=== PATIENT | male | born 1970 | race Caucasian/White ===

== ENCOUNTER 2019-11-10 11:34 | Emergency (ER) | payer OTHER, SELFPAY ==
[2019-11-10 11:37] VITALS: BP 118/86; PULSE 91; RESP 18; TEMP 36.9; O2SAT 99; BMI 32.8
--- NOTE | 2019-11-10 11:39 | NURSING ---
NO OLD EKGS
--- NOTE | 2019-11-10 11:57 | EKG12_ITS ---
Test Reason : CHEST IGHTNESS Blood Pressure : / mmHG Vent. Rate : 095 BPM Atrial Rate : 095 BPM P-R Int : 156 ms QRS Dur : 074 ms QT Int : 350 ms P-R-T Axes : 017 021 019 degrees QTc Int : 439 ms Normal sinus rhythm Low voltage QRS Borderline ECG Confirmed by AUBREY ZAVALA ([id number]), news video editor CHARLOTTE OLSON ([id number]) on 11/15/2019 2:15:21 PM Referred By: MARSHALL Confirmed By:AUBREY ZAVALA
--- NOTE | 2019-11-10 11:57 | RAD_ITS ---
STUDY: X-RAY CHEST REASON FOR EXAM: Male, 49 years old. CHEST PAIN TECHNIQUE: Single AP portable view of the chest. COMPARISON: None. FINDINGS: EKG electrodes are seen. Elevation of the right hemidiaphragm. There is no demonstrated pleural abnormality. Normal size heart. Normal mediastinum and kylie. Normal visualized pulmonary arteries. Normal visualized aortic arch and descending thoracic aorta. Normal visualized thoracic spine. Normal visualized ribs, clavicles, and shoulders. There is no demonstrated abnormality of the visualized soft tissue structures of the upper abdomen. RAD/Chest 1 View (Portable) IMPRESSION: No acute abnormality is seen. Electronically Signed: Asif Penn, at 12:44 EDT , Service support ,
[2019-11-10 12:07] LABS: Absolute Lymphocyte Count 3.04 X10^3/uL (0.83-4.51); Absolute Neutrophil Count 4.6 X10^3/uL (2.0-7.7); Basophil# 0.02 X10^3/uL; Basophil% 0.2 % (0-1); Eosinophil# 0.08 X10^3/uL; Eosinophils% 0.9 % (0-5); Hematocrit 42.6 % (40-54); Hemoglobin 13.8 g/dL (13.0-16.5); Lymphocyte # 3.04 X10^3/ul (4.0); Lymphocyte % 34.9 % (19-41); Mean Corp Hgb Conc 32.4 g/dL (32-36); Mean Corpuscular Hgb 29.1 pg (27.0-32.0); Mean Corpuscular Volume 89.9 fL (80-94); Mean Platelet Vol. 11.3 fl (6.2-12.0); Monocyte# 0.92 X10^3/uL; Monocyte% 10.6 % (0-10); NRBC Flagged by Analyzer 0 % (0-5); Neutrophil # 4.64 X10^3/uL (2.7-7.7); Neutrophil % 53.3 % (47-70); Platelet Count 282 K/mm3 (150-450); RBC Distribution Width CV 12.8 % (11.6-14.6); Red Blood Count 4.74 M/mm3 (4.6-6.2); White Blood Count 8.7 K/mm3 (4.4-11.0)
[2019-11-10 12:22] LABS: Anion Gap 4 (5-15); BUN 12 mg/dL (7-18); BUN/Creat Ratio 10.6 RATIO (10-20); Calcium,Total 8.9 mg/dL (8.5-10.1); Chloride 108 mmol/L (98-107); Creatinine, Serum 1.13 mg/dL (0.70-1.30); EST Glomerular Filtration Rate 73 mL/min (>60); Est Glom Filt Rate - Afr Amer 89 mL/min (>60); Glucose 109 mg/dL (74-106); Potassium 3.6 mmol/L (3.5-5.1); Sodium Level 139 mmol/L (136-145)
--- NOTE | 2019-11-10 12:28 | ED.VISSUMM ---
- ER Visit Summary Date of Service: 11/10/19 Chief Complaint: Chest pain History of Present Illness: The patient is a 49 M who presents with chest pain that is been intermittent over the past 2 days. Patient states he went to his primary care physician today. Patient states he was referred here for further evaluation of his chest pain. Patient describes as a tightness. Patient states the pain is over the substernal area. Patient states nothing makes it better or worse. Patient admits to nausea but denies any vomiting. Patient admits to shortness of breath. Patient admits to cough but denies any sputum production. Patient admits to some palpitations. Physical Examination: Vital signs are stable. Patient is afebrile. Patient is in no acute distress. Oral mucosa is pink and moist. Neck is supple. Trachea is midline. There is no JVD. Heart was regular rate and rhythm. Lungs are clear and equal bilaterally. Abdomen is soft. Bowel sounds are normal. There is no tenderness. Cranial nerves II through XII are intact. There are no focal motor or sensory deficits noted. Extremities are intact. There is no calf tenderness or edema. Test Results: EKG shows normal sinus rhythm with a rate of 95. There are no acute ST or T wave changes. CBC, basic metabolic profile, troponin were obtained and were within normal limits. Portable chest x-ray was obtained. There is no acute cardiopulmonary process. This was interpreted by the radiologist and reviewed by myself. Emergency Department Course and Treatment: Patient was given baby aspirin here. Patient had no further episodes of chest pain here in the emergency department. Patient is feeling better on reevaluation. Patient was instructed to follow-up with his primary care physician in 5 to 7 days. Patient understood and was agreeable with the plan. All questions were answered. Disposition: Discharge home Impression: Chest pain This note was generated with [employer] dictation software. It may contain incorrect words, spelling, and punctuation that were not noted in review of the chart prior to signing ED Disposition - Plan for ED Patient: Disposition: Home or Assisted Living Diagnosis: Chest pain Instructions: ED Chest Pain Atypical Unkn Cause Referrals: NOT,DEFINED [NON-STAFF] - 5-7 Days
[2019-11-10 12:53] VITALS: O2SAT 98
[2019-11-10 12:57] VITALS: BP 124/92; PULSE 78; RESP 14; O2SAT 98
[2019-11-10] MEDS: Aspirin 81 MG TAB.CHEW 324 MG PO (12:58)
[2019-11-10 14:47] VITALS: BP 129/91; PULSE 78; RESP 12; O2SAT 98
[2019-11-10 16:08] VITALS: BP 107/78; PULSE 82; RESP 24; O2SAT 97
== END 2019-11-10 16:20 | disposition home or self-care (01) ==
PROVIDERS: Emergency Provider Emergency Medicine; PCP Nurse Practitioner Family
DX: R07.89 Other chest pain (principal); R06.02 Shortness of breath; R05 Cough; R00.2 Palpitations; R11.0 Nausea; J45.909 Unspecified asthma, uncomplicated
CPT/HCPCS: 71045; 80048; 84484; 85025; 93005; 99285; A4216

== ENCOUNTER 2021-06-26 09:50 | Emergency (ER) | payer SELFPAY ==
[2021-06-26 09:52] VITALS: BP 130/88; PULSE 99; RESP 16; TEMP 36.1; O2SAT 100; BMI 34.9
--- NOTE | 2021-06-26 10:15 | EDS_ITS ---
HPI History of Present Illness HPI Narrative: Patient presents with left ankle injury that occurred 4 days ago. Patient states he slipped on the ice while he was trying to get into his car. Patient states he went to [place] emergency department and had x-rays done there. Patient states he was given a splint. Patient states that his pain has gotten worse. Patient states his pain is worse with weightbearing. Patient states nothing seems to help with the pain. Patient denies any paresthesias or weakness. Patient denies any other injuries. Chief Complaint: Lower Extremity Injury Informant: patient Occured/Mechanism Mechanism/Context: Yes fall and Yes same level fall Onset/Context/Timing Onset: Days (4) Context: Sudden Onset Timing: Continuous Quality of Pain: Aching Location: Left ankle Worsened by: Weightbearing Relieved by: Nothing Associated Symptoms Associated Symptoms: Negative for Parasthesia, Weakness and Loss of Funtion [facility] Medical History (Updated 06/26/21 @ 12:[address] Jose Miguel Lira DO) Asthma Home Medications NK 11/10/19 [History Last Taken Unknown] Allergy/AdvReac Type Severity Reaction Status Date / Time tetanus and diphtheria Allergy Anaphylaxis Verified 06/26/21 09:51 toxoids Surgical History (Updated 06/26/21 @ 10:[address] Jose Miguel Lira DO) History of carpal tunnel surgery Social History Smoking Status: Former smoker ROS ROS ED Constitutional Constitutional ED: Denies chills or fever(s) Eyes Eyes: Denies blurry vision or change in vision ENT ENT ED: Denies rhinorrhea or sore throat Cardiovascular Cardiovascular: Denies chest pain or palpitations Respiratory/Chest Respiratory/Chest: Denies cough or dyspnea Gastrointestinal Gastrointestinal: Denies nausea or vomiting Genitourinary Genitourinary ED: Denies dysuria or hematuria Musculoskeletal Musculoskeletal: Denies back pain or neck pain Integumentary Denies abscess or rash Neurologic Neurologic: Denies headache(s) or weakness Allergic/Immunologic Allergic/Immunologic ED: Denies mouth swelling or urticaria EXAM Physical Exam Const Vital Signs: 06/26/21 09:52 Temperature 96.9 F L Temperature Source Temporal Pulse Rate 99 Respiratory Rate 16 Blood Pressure 130/88 H Blood Pressure Mean 102 Pulse Ox 100 Oxygen Delivery Method Room Air Positive well nourished, well developed and obese General Appearance ED: well developed Nutritional Appearance: obese HEENT Reports moist mucous membranes normocephalic Extremity Extremity Narrative: There is tenderness over the left ankle. There is some mild edema. There is no deformity noted. There is no tenderness over the fifth metatarsal or proximal fibula. Sensation was intact to light touch in all digits. Pedal pulses were equal bilaterally. Neuro oriented x3, CN's II-XII intact bilaterally, moves all extremities and no sensory deficits noted Sensorium / Orientation: alert Motor Exam: strength 5/5 throughout Psych mental status grossly normal MDM MDM MDM Narrative Medical decision making narrative: X-rays of the left ankle were obtained. There are 3 views. On my interpretation, there is no acute fracture. There is no dislocation. There is some mild soft tissue swelling. Radiologist also interpreted the x-rays and agrees. Patient was given a walking boot. Patient was instructed to ice and elevate the left ankle. Patient was instructed to take Tylenol or ibuprofen as needed for pain. Patient was given restrictions for work. Patient was instructed to follow-up with his primary care physician in 5 to 7 days. Patient understood and was agreeable with the plan. All questions were answered. Radiography Diagnostic Testing: Clinical Impression(s) from Imaging Studies Ankle X-Ray 06/26/21 10:25 IMPRESSION: Mild soft tissue swelling overlying the lateral malleolus. Very small calcaneal enthesophytes. Electronically Signed: Adarsh Abbott MD at 10:51 EST Reading Location ID and State: [address] [place] [address] Tel , Service support , Discharge Plan Triage Chief Complaint: Lower Extremity Injury ED Provider: Jose Miguel Lira Dx/Rx/DC Orders Clinical Impression: Left ankle sprain Instructions: ED Ankle Sprain (Adult) Prescriptions: No Action NK RF: 0 Primary Care Provider: Dalila Deshpande NP Referrals: Dalila Deshpande NP, [employer] [Primary Care Provider] - 5-7 Days Disposition Disposition: Home, Self Care
--- NOTE | 2021-06-26 10:25 | RAD_ITS ---
STUDY: X-RAY - LEFT ANKLE REASON FOR EXAM: Left ankle pain, left ankle injury. TECHNIQUE: 3 view(s) of the ankle. COMPARISON: None. FINDINGS: Normal visualized distal tibia and fibula. Normal medial and lateral malleoli. Normal tibiotalar articulation and ankle mortise. There are very small posterior and plantar calcaneal enthesophytes. The visualized subtalar, talonavicular, calcaneocuboid and tarsal articulations are normal. There is mild soft tissue swelling overlying the lateral malleolus. RAD/Ankle min 3 Views IMPRESSION: Mild soft tissue swelling overlying the lateral malleolus. Very small calcaneal enthesophytes. Electronically Signed: Adarsh Abbott MD at 10:51 EST ,
[2021-06-26 12:32] VITALS: RESP 16
== END 2021-06-26 12:32 | disposition home or self-care (01) ==
PROVIDERS: Emergency Provider Emergency Medicine; PCP Nurse Practitioner Family; Visit Provider Emergency Medicine
DX: S93.402A Sprain of unspecified ligament of left ankle, initial encounter (principal); W00.0XXA Fall on same level due to ice and snow, initial encounter; J45.909 Unspecified asthma, uncomplicated; E66.9 Obesity, unspecified; Z87.891 Personal history of nicotine dependence
CPT/HCPCS: 73610; 99283